=== PATIENT | male | born 1990 | race African-American/Black ===

== ENCOUNTER 2019-04-14 12:04 | Emergency (ER) | payer MEDICAID, OTHER ==
[~2019-04-14] VITALS: Ht 177.8 cm; Wt 97.5 kg
[2019-04-14 12:11] VITALS: BP_SYST 128
[2019-04-14 12:32] LABS: BASOPHILS % (AUTO) 0.3 % (0.0-2.0); LYMPHOCYTES # (AUTO) 1.2 K/uL (1.0-5.5); LYMPHOCYTES % (AUTO) 11.5 % (20.5-51.5); MEAN CORPUSCULAR HEMOGLOBIN 29 pg (27-31); MEAN CORPUSCULAR HGB CONC 33 % (32-36); MEAN CORPUSCULAR VOLUME 87 fL (79.0-98.0); MONOCYTES # (AUTO) 0.6 K/uL (0.0-1.0); NEUTROPHILS # (AUTO) 8.3 K/uL (1.8-7.7); NEUTROPHILS % (AUTO) 82.2 % (40.0-70.0); PLATELET COUNT (AUTO) 183 K/uL (130-430); RED BLOOD CELL COUNT(AUTO) 5.21 MIL/uL (4.2-6.2); RED CELL DISTRIBUTION WIDTH 13.6 % (9.0-15.0); WHITE BLOOD COUNT (AUTO) 10.1 K/uL (4.8-10.8)
[2019-04-14] MEDS ORDERED: LORazepam 2 MG/ML VIAL IVP ONE (12:45)
[2019-04-14] MEDS ORDERED: LORazepam 2 MG/ML VIAL (FOR ER USE) IVP ONE ×2 (12:45→16:15)
[2019-04-14 12:46] LABS: CALCIUM 8.8 mg/dL (8.4-11.0); CREATININE 1.59 mg/dL (0.55-1.30); POTASSIUM 3.9 mmol/L (3.5-5.1)
[2019-04-14 12:51] LABS: ALBUMIN 3.8 g/dL (3.4-4.8); TOTAL BILIRUBIN 0.5 mg/dL (0.0-1.0)
[2019-04-14] MEDS ORDERED: LORazepam 2 MG/ML VIAL (FOR ER USE) ONE (12:56)
[2019-04-14] MEDS ORDERED: levETIRAcetam 500 MG TABLET PO ONE (15:15)
[2019-04-14] MEDS ORDERED: levETIRAcetam 500 MG IV PREMIX 100 ML IV ONE (16:15)
[2019-04-14 18:40] VITALS: BP_SYST 145
== END 2019-04-14 18:40 | disposition left against medical advice (07) ==
LOC: SED 12:04
DX: R56.9 Unspecified convulsions (principal)
CPT/HCPCS: 36415; 80053; 85025; 96365; 96375; 96376; 99283; J1953; J2060